=== PATIENT | female | born 1960 | race Caucasian/White ===

== ENCOUNTER 2022-05-14 21:18 | Inpatient (IN) | payer OTHER ==
[~2022-05-14] VITALS: Ht 172.7 cm; Wt 83.0 kg
[2022-05-14 21:58] LABS: BASOPHILS % (AUTO) 0.4 % (0.0-5.0); HEMATOCRIT 44.8 % (36-48); LYMPHOCYTES % (AUTO) 5.8 % (21.0-51.0); MEAN CORPUSCULAR HEMOGLOBIN 30.1 pg (27.0-33.0); MEAN CORPUSCULAR HGB CONC 34.4 g/dL (32.0-36.0); MEAN CORPUSCULAR VOLUME 87.7 fL (79-99); MONOCYTES % (AUTO) 3.6 % (3.0-13.0); NEUTROPHILS % (AUTO) 89.7 % (40.0-77.0); PLATELET COUNT (AUTO) 266 K/uL (130-400); RED BLOOD CELL COUNT(AUTO) 5.11 MIL/uL (4.00-5.50); RED CELL DISTRIBUTION WIDTH 12.7 % (11.0-15.5); WHITE BLOOD COUNT (AUTO) 18.4 K/uL (4.8-10.8)
[2022-05-14 22:00] LABS: CREATININE 0.9 mg/dL (0.5-1.5); POTASSIUM 3.9 mmol/L (3.5-5.1)
[2022-05-14] MEDS ORDERED: ONDANSETRON 4MG INJ IVP ONE (22:00)
[2022-05-14 22:03] LABS: APPEARANCE,URINE CLOUDY (CLEAR); BILIRUBIN,URINE NEGATIVE (NEGATIVE); COLOR,URINE LIGHT-YELLOW (YELLOW); GLUCOSE, URINE (UA) NEGATIVE (NEGATIVE); KETONES,URINE 20 mg/dL (NEGATIVE); LEUKOCYTE ESTERASE ,URINE NEGATIVE Leu/uL (NEGATIVE); NITRATE,URINE NEGATIVE (NEGATIVE); OCCULT BLOOD,URINE NEGATIVE (NEGATIVE); PROTEIN,URINE 20 mg/dL (NEGATIVE); UROBILINOGEN,URINE 0.2 mg/dL (0.2-1.0)
[2022-05-14 22:08] LABS: BACTERIA,URINE FEW /HPF (None Seen); CALCIUM OXALATE CRYSTALS,UR FEW /LPF (None Seen); MUCUS,URINE RARE LPF (None Seen); SQUAMOUS EPITHELIAL CELL,UR FEW /HPF (0-2); YEAST,URINE BUDDING FEW /HPF (None Seen)
[2022-05-14 22:09] LABS: ALBUMIN 4.6 g/dL (3.5-5.0); TOTAL PROTEIN, SERUM 8.7 g/dL (6.0-8.3)
[2022-05-14] MEDS ORDERED: DICYCLOMINE HCL 10 MG/5 ML ML PO ONE (22:30)
[2022-05-14] MEDS ORDERED: 0.9%NACL 1000ML 1,000 ML IV ONE (22:30)
[2022-05-14] MEDS ORDERED: LIDOCAINE HCL 2% VISCOUS 15 ML UDCUP PO ONE (22:30)
[2022-05-14] MEDS ORDERED: KETOROLAC 15MG/ML VIAL (15MG/ML) IV ONE (22:30)
[2022-05-14] MEDS ORDERED: MAG/ALUM/SIMETH 30 ML UDCUP PO ONE (22:30)
[2022-05-14] MEDS ORDERED: MORPHINE 4 MG SYG IVP ONE (22:30)
[2022-05-15] MEDS ORDERED: MORPHINE 4 MG SYG IVP ONE
[2022-05-15] MEDS ORDERED: ZOSYN 3.375GM +NS 50ML IV ONE (01:00)
[2022-05-15] MEDS ORDERED: MAGNESIUM 2GM PREMIX 50ML 50 ML IV PRN (01:30)
[2022-05-15] MEDS ORDERED: POTASSIUM CHLORIDE 20MEQ/100ML 100 ML IV PRN (01:30)
[2022-05-15] MEDS ORDERED: LIDOCAINE HCL-MPF 1% 2ML VIAL IV PRN (01:30)
[2022-05-15] MEDS ORDERED: ACETAMINOPHEN 650 MG SUPPOSITORY RC PRN (01:30)
[2022-05-15] MEDS ORDERED: AMLO-257 PO (01:38)
[2022-05-15] MEDS ORDERED: ASPI-1443 PO (01:42)
[2022-05-15 04:22] VITALS: BP 145/87
[2022-05-15] MEDS: ONDANSETRON 4MG INJ IV PRN ×2 (05:02→20:02)
[2022-05-15] MEDS: LACTATED RINGERS 1000ML 1,000 ML IV SCH (05:26)
[2022-05-15] MEDS: ZOSYN 3.375GM+NS 50ML 50 ML IV SCH ×3 (05:27→20:02)
[2022-05-15] MEDS: MORPHINE 4 MG SYG IV PRN ×2 (05:27→20:02)
[2022-05-15 05:30] LABS: BASOPHILS % (AUTO) 0.2 % (0.0-5.0); HEMATOCRIT 44.2 % (36-48); LYMPHOCYTES % (AUTO) 10.8 % (21.0-51.0); MEAN CORPUSCULAR HEMOGLOBIN 30.1 pg (27.0-33.0); MEAN CORPUSCULAR HGB CONC 33.9 g/dL (32.0-36.0); MEAN CORPUSCULAR VOLUME 88.6 fL (79-99); MONOCYTES % (AUTO) 7.7 % (3.0-13.0); NEUTROPHILS % (AUTO) 80.9 % (40.0-77.0); PLATELET COUNT (AUTO) 269 K/uL (130-400); RED BLOOD CELL COUNT(AUTO) 4.99 MIL/uL (4.00-5.50); RED CELL DISTRIBUTION WIDTH 12.9 % (11.0-15.5); WHITE BLOOD COUNT (AUTO) 13.6 K/uL (4.8-10.8)
[2022-05-15 05:48] LABS: CREATININE 0.8 mg/dL (0.5-1.5); PHOSPHORUS 4.2 mg/dL (2.5-4.9); POTASSIUM 3.7 mmol/L (3.5-5.1)
[2022-05-15 05:56] LABS: INR 0.98 (0.85-1.15); PROTHROMBIN TIME 10.7 SEC (9.6-11.6)
[2022-05-15 05:57] LABS: HEMOGLOBIN A1C 5.6 % (4.0-6.0); PARTIAL THROMBOPLASTIN TIME 31.8 SEC (26.3-35.5)
[2022-05-15 08:00] VITALS: BP 152/73
[2022-05-15] MEDS: FAMOTIDINE 20MG VIAL IV SCH (08:25)
[2022-05-15] MEDS ORDERED: OMEP20TA20 PO (08:29)
[2022-05-15] MEDS: ENOXAPARIN SODIUM 40 MG/0.4 ML SYRINGE SQ SCH (09:00)
[2022-05-15 12:00] VITALS: BP 120/54
[2022-05-15 16:00] VITALS: BP 143/92
[2022-05-15] MEDS: ASPIRIN 81 MG EC TAB PO SCH (20:01)
[2022-05-15] MEDS: AMLODIPINE 5 MG TAB PO SCH (20:02)
[2022-05-15 21:05] VITALS: BP 137/85
[2022-05-16 00:51] VITALS: BP 134/67
[2022-05-16] MEDS: LACTATED RINGERS 1000ML 1,000 ML IV SCH ×2 (01:18→21:28)
[2022-05-16] MEDS: ONDANSETRON 4MG INJ IV PRN (01:43)
[2022-05-16] MEDS: MORPHINE 4 MG SYG IV PRN ×3 (01:44→15:04)
[2022-05-16 04:37] VITALS: BP 178/91
[2022-05-16] MEDS: ZOSYN 3.375GM+NS 50ML 50 ML IV SCH ×3 (04:43→21:29)
[2022-05-16 05:07] LABS: BASOPHILS % (AUTO) 0.3 % (0.0-5.0); HEMATOCRIT 42.3 % (36-48); LYMPHOCYTES % (AUTO) 8.5 % (21.0-51.0); MEAN CORPUSCULAR HEMOGLOBIN 29.5 pg (27.0-33.0); MEAN CORPUSCULAR HGB CONC 33.8 g/dL (32.0-36.0); MEAN CORPUSCULAR VOLUME 87.4 fL (79-99); MONOCYTES % (AUTO) 8.5 % (3.0-13.0); NEUTROPHILS % (AUTO) 82.3 % (40.0-77.0); PLATELET COUNT (AUTO) 223 K/uL (130-400); RED BLOOD CELL COUNT(AUTO) 4.84 MIL/uL (4.00-5.50); RED CELL DISTRIBUTION WIDTH 12.8 % (11.0-15.5); WHITE BLOOD COUNT (AUTO) 14.2 K/uL (4.8-10.8)
[2022-05-16 05:18] LABS: ALBUMIN 3.7 g/dL (3.5-5.0); CREATININE 0.8 mg/dL (0.5-1.5); MAGNESIUM 1.9 mg/dL (1.80-2.40); POTASSIUM 3.5 mmol/L (3.5-5.1); TOTAL PROTEIN, SERUM 7.6 g/dL (6.0-8.3)
[2022-05-16 08:00] VITALS: BP 151/88
[2022-05-16] MEDS: FAMOTIDINE 20MG VIAL IV SCH (10:50)
[2022-05-16] MEDS ORDERED: LABETALOL 20MG VIAL IV PRN (11:00)
[2022-05-16 11:51] VITALS: BP 139/85
[2022-05-16 16:00] VITALS: BP 144/91
[2022-05-16] MEDS: ENOXAPARIN SODIUM 40 MG/0.4 ML SYRINGE SQ SCH (16:31)
[2022-05-16] MEDS ORDERED: LACTATED RINGERS 1000ML 1,000 ML IV ONE (19:46)
[2022-05-16] MEDS ORDERED: LACTULOSE 20 GM/30 ML UDCUP PO ONE (20:00)
[2022-05-16 20:05] VITALS: BP 140/88
[2022-05-16] MEDS: AMLODIPINE 5 MG TAB PO SCH (21:28)
[2022-05-16] MEDS: ASPIRIN 81 MG EC TAB PO SCH (21:28)
[2022-05-17] VITALS (24 sets, daily range): BP systolic 106–158; BP diastolic 65–94
[2022-05-17] MEDS: ZOSYN 3.375GM+NS 50ML 50 ML IV SCH ×2 (06:31→20:46)
[2022-05-17] MEDS ORDERED: BUPIVACAINE/PF 0.5% 10ML VIAL ONE ×2 (06:38→07:17)
[2022-05-17] MEDS ORDERED: LIDOCAINE HCL 1% 20 ML VIAL ONE ×2 (06:38→07:18)
[2022-05-17] MEDS: MORPHINE 2 MG SYG IV PRN ×2 (06:41→07:42)
[2022-05-17] MEDS ORDERED: ACETAMINOPHEN WITH CODEINE 1 TAB TAB PO PRN (08:00)
[2022-05-17] MEDS ORDERED: ROPIVACAINE 0.5% 5MG/ML 30ML IJ ONE (08:18)
[2022-05-17] MEDS: FAMOTIDINE 20MG VIAL IV SCH (08:39)
[2022-05-17] MEDS ORDERED: LIDOCAINE PF 100MG/5ML (2%) SYRINGE 5ML ONE (10:20)
[2022-05-17] MEDS ORDERED: PROPOFOL 10 MG/ML 20ML VIAL IV ONE (10:20)
[2022-05-17] MEDS ORDERED: MIDAZOLAM HCL 1 MG/ML 2ML VIAL ONE (10:21)
[2022-05-17] MEDS ORDERED: ROCURONIUM 10MG/1ML SYR 10 MG/ML ML ONE ×2 (10:21→12:27)
[2022-05-17] MEDS ORDERED: FENTANYL CITRATE PF 50 MCG/1 ML 2ML VIAL ONE ×2 (10:23→12:00)
[2022-05-17] MEDS ORDERED: ONDANSETRON 4MG INJ ONE (10:23)
[2022-05-17] MEDS ORDERED: DEXAMETHASONE SOD PHOSPHATE 10MG/ML 1ML VIAL ONE (10:23)
[2022-05-17] MEDS ORDERED: NEOSTIGMINE 5MG/5ML SYR IV ONE (13:01)
[2022-05-17] MEDS ORDERED: GLYCOPYRROLATE 1 MG/5 ML SYRINGE ONE (13:01)
[2022-05-17] MEDS: ONDANSETRON 4MG INJ IV PRN (14:10)
[2022-05-17] MEDS: ASPIRIN 81 MG EC TAB PO SCH (20:45)
[2022-05-17] MEDS: AMLODIPINE 5 MG TAB PO SCH (20:45)
[2022-05-17] MEDS: LACTATED RINGERS 1000ML 1,000 ML IV SCH (20:47)
[2022-05-18] VITALS (7 sets, daily range): BP systolic 123–151; BP diastolic 77–90
[2022-05-18 05:11] LABS: BASOPHILS % (AUTO) 0.1 % (0.0-5.0); EOSINOPHILS % (AUTO) 0.1 % (0.0-8.0); LYMPHOCYTES % (AUTO) 7.2 % (21.0-51.0); MEAN CORPUSCULAR HEMOGLOBIN 29.6 pg (27.0-33.0); MEAN CORPUSCULAR VOLUME 87.1 fL (79-99); MONOCYTES % (AUTO) 9.3 % (3.0-13.0); NEUTROPHILS % (AUTO) 82.9 % (40.0-77.0); PLATELET COUNT (AUTO) 223 K/uL (130-400); RED BLOOD CELL COUNT(AUTO) 4.02 MIL/uL (4.00-5.50); RED CELL DISTRIBUTION WIDTH 12.5 % (11.0-15.5); WHITE BLOOD COUNT (AUTO) 12.1 K/uL (4.8-10.8)
[2022-05-18] MEDS: ZOSYN 3.375GM+NS 50ML 50 ML IV SCH ×3 (05:15→19:58)
[2022-05-18 05:31] LABS: ALBUMIN 2.8 g/dL (3.5-5.0); BILIRUBIN,DIRECT 0.2 mg/dL (0.0-0.3); CREATININE 0.7 mg/dL (0.5-1.5); POTASSIUM 3.5 mmol/L (3.5-5.1); TOTAL PROTEIN, SERUM 6.7 g/dL (6.0-8.3)
[2022-05-18] MEDS: FAMOTIDINE 20MG VIAL IV SCH (08:31)
[2022-05-18] MEDS: ENOXAPARIN SODIUM 40 MG/0.4 ML SYRINGE SQ SCH ×2 (08:33→10:27)
[2022-05-18] MEDS ORDERED: AMOX1TAB16 PO (11:18)
[2022-05-18] MEDS ORDERED: LACTULOSE 20 GM/30 ML UDCUP ONE (15:43)
[2022-05-18] MEDS ORDERED: LACTULOSE 20 GM/30 ML UDCUP PO ONE (16:30)
[2022-05-18] MEDS: AMLODIPINE 5 MG TAB PO SCH (19:57)
[2022-05-18] MEDS: KCL 20 MEQ ERTAB PO PRN ×2 (19:57→22:04)
[2022-05-18] MEDS: ASPIRIN 81 MG EC TAB PO SCH (19:57)
[2022-05-18] MEDS ORDERED: POTASSIUM CHLORIDE 10% ELIXIR 20 MEQ/15 ML UDCUP PO PRN (20:00)
[2022-05-18] MEDS ORDERED: LIDOCAINE HCL-MPF 1% 2ML VIAL IV PRN (20:00)
[2022-05-18] MEDS ORDERED: POTASSIUM CHLORIDE 20MEQ/100ML 100 ML IV PRN (20:00)
[2022-05-18] MEDS ORDERED: SENNOSIDES 8.6 MG TABLET PO SCH (21:00)
[2022-05-19 04:00] VITALS: BP 124/77
[2022-05-19] MEDS: ZOSYN 3.375GM+NS 50ML 50 ML IV SCH (05:06)
[2022-05-19 06:41] LABS: BASOPHILS % (AUTO) 0.4 % (0.0-5.0); EOSINOPHILS % (AUTO) 0.4 % (0.0-8.0); HEMATOCRIT 34.3 % (36-48); LYMPHOCYTES % (AUTO) 29.4 % (21.0-51.0); MEAN CORPUSCULAR HEMOGLOBIN 29.7 pg (27.0-33.0); MEAN CORPUSCULAR HGB CONC 33.5 g/dL (32.0-36.0); MEAN CORPUSCULAR VOLUME 88.6 fL (79-99); NEUTROPHILS % (AUTO) 58.4 % (40.0-77.0); PLATELET COUNT (AUTO) 232 K/uL (130-400); RED BLOOD CELL COUNT(AUTO) 3.87 MIL/uL (4.00-5.50); RED CELL DISTRIBUTION WIDTH 12.8 % (11.0-15.5); WHITE BLOOD COUNT (AUTO) 9.2 K/uL (4.8-10.8)
[2022-05-19] MEDS: KCL 20 MEQ ERTAB PO PRN ×2 (06:58→08:58)
[2022-05-19 07:19] LABS: ALBUMIN 2.8 g/dL (3.5-5.0); CREATININE 0.8 mg/dL (0.5-1.5); CRP QUANTITATIVE 73.3 mg/L (0.00-9.0); MAGNESIUM 1.9 mg/dL (1.80-2.40); POTASSIUM 3.5 mmol/L (3.5-5.1); TOTAL PROTEIN, SERUM 6.5 g/dL (6.0-8.3)
[2022-05-19 07:30] VITALS: BP 130/77
[2022-05-19] MEDS: FAMOTIDINE 20MG VIAL IV SCH (08:47)
[2022-05-19] MEDS ORDERED: LEVO-70 PO (10:37)
[2022-05-19 11:26] VITALS: BP 143/79
== END 2022-05-19 11:35 | disposition home or self-care (01) | DRG 419 ==
LOC: EDH 21:18 → EDHIP 05-15 01:22 → 3CH 05-15 03:53
PROVIDERS: ADMIT Internal Medicine; ATTEND Internal Medicine
PROC: 0FT44ZZ Resection of Gallbladder, Percutaneous Endoscopic Approach (ICD-10-PCS; principal; 2022-05-17 11:12)
DX: K80.00 Calculus of gallbladder with acute cholecystitis without obstruction (principal); K82.A1 Gangrene of gallbladder in cholecystitis; Z20.822 Contact with and (suspected) exposure to COVID-19; R73.9 Hyperglycemia, unspecified; K21.9 Gastro-esophageal reflux disease without esophagitis; I10 Essential (primary) hypertension; Z87.891 Personal history of nicotine dependence; Z88.2 Allergy status to sulfonamides
CPT/HCPCS: 36415; 74176; 76705; 78226; 80048; 80053; 81001; 82248; 82948; 83036; 83605; 83690; 83735; 84100; 84145; 84484; 85025; 85610; 85730; 86140; 86850; 86900; 86901; 87040; 87077; 87088; 87186; 87635; 93005; 96361; 96374; 96375; A9537; G0378; J1100; J1650; J1885; J2001; J2250; J2270; J2405; J2543; J2704; J2710; J2795; J3010; J3475; J3480; J3490; J7030; J7120